=== PATIENT | male | born 1955 | race Hispanic/Latino ===

== ENCOUNTER 2017-01-27 06:09 | Emergency (ER) | payer MEDICAID, OTHER ==
[~2017-01-27] VITALS: Ht 170.2 cm; Wt 53.2 kg
[~2017-01-27 06:09] MED LIST: ALBU2.5V4 IH; ALBU8.5H2 IH; BECL8.7A5 INH; BUPR1FIL3 SL; DOXY100T2 PO; EFAV1TAB PO; FLUT16SP2 NS; GABA-502 PO; IPRA0.2S51 IH; SALM50DI IH; TRAZ-115 PO
[2017-01-27 06:13] VITALS: BP 113/78; PULSE 88; RESP 24; O2SAT 95
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
[2017-01-27] MEDS ORDERED: Albuterol-Ipratropium 3 mL Inhalation Solution NEB ONE (06:55)
[2017-01-27] MEDS ORDERED: MethylprednisoLONE Sodium Succinate 62.5 mg/mL 2 mL Inj IVPUSH ONE (06:55)
[2017-01-27 07:12] LABS: BASOPHILS % (AUTO) 0.1 % (0-3); EOSINOPHILS % (AUTO) 0.7 % (0-5); MONOCYTES % (AUTO) 5.7 % (4-12); Mean Corpuscular Hemoglobin 31.2 pg (27.0-35.0); NEUTROPHILS % (AUTO) 76.1 % (40-74); Platelet Count 145 bil/L (150-400)
[2017-01-27 07:22] VITALS: PULSE 83; RESP 22; O2SAT 95
[2017-01-27 07:48] LABS: TROPONIN T < 0.010 ug/L (0.0-0.011)
[2017-01-27 08:32] VITALS: BP 112/62; PULSE 84; RESP 18; O2SAT 92
--- NOTE | 2017-01-27 08:34 | DRSVH ---
PROCEDURE: X-RAY CHEST ONE VIEW, PORTABLE ([id number]) INDICATIONS: dyspnea TECHNIQUE: One view of the chest was acquired. COMPARISON: [facility], CR, CHEST 2VW, 09/28/2013, 20:49. [facility], CT, CH EST ANGIO-PE, 03/20/2012, 12:28. [facility], CR, CHEST 1VW (PORTABLE), 10/14/2014, 6:13. FINDINGS: Surgical changes and devices: None. Lungs and pleura: No definite pleural effusions or pneumothorax. Chronic blunting of right costophr enic angle is redemonstrated compatible with pleural thickening. There is a peripheral pleural based band-like opacity in the right upper lung zone and increased left infrahilar streaky opacities. Biba silar interstitial prominence is also again noted. There is hyperinflation of the lungs with flatteni ng of the hemidiaphragms compatible with COPD. Mediastinum: Mediastinal contours appear unchanged. Heart size is normal. Bones and chest wall: No suspicious bony lesions. Overlying soft tissues appear unremarkable. IMPRESSION: 1. New bilateral streaky bandlike opacities may represent pneumonia. However, clinical correlation is recommended as well as short-term followup to demonstrate resolution as mass lesions may have a si milar appearance. Dictated by: David Rincon M.D. on 01/27/2017 at 8:29 Approved by: David Rincon M.D. on 01/27/2017 at 8:33
[2017-01-27] MEDS ORDERED: AMOX-366 PO (08:38)
[2017-01-27] MEDS ORDERED: DOXY-232 PO (08:38)
[2017-01-27 09:26] VITALS: BP 111/68; PULSE 90; RESP 21; O2SAT 92
== END 2017-01-27 09:27 | disposition home or self-care (01) ==
LOC: SED 06:09
DX: J18.9 Pneumonia, unspecified organism (principal); J44.9 Chronic obstructive pulmonary disease, unspecified; J45.909 Unspecified asthma, uncomplicated; K21.9 Gastro-esophageal reflux disease without esophagitis; F17.200 Nicotine dependence, unspecified, uncomplicated
CPT/HCPCS: 36415; 71010; 80053; 83605; 83880; 84484; 85025; 93005; 94664; 96374; 99285; J2930; J7620